=== PATIENT | female | born 1960 | race Caucasian/White ===

== ENCOUNTER → 2016-07-07 | Outpatient (CLI) | payer BC ==
--- NOTE | 2016-07-07 10:05 | MM ---
Reason for exam: clinical finding. Last mammogram was performed 1 year and 1 month ago. History: Patient is postmenopausal and is nulliparous. Family history of breast cancer in maternal grandmother and breast cancer in paternal aunt. Benign right mammotome panel of the right breast, December 31, 2008. Taking hormonal contraceptives for 2 years beginning at age 46. Indicated problem(s): lump or thickening in the left breast. Physical Findings: Nurse did not find any significant physical abnormalities on exam. MG 3D Diag Mammo W/Cad KG Bilateral CC and MLO view(s) were taken. Prior study comparison: May 27, 2015, bilateral MG 3d screening mammo w/cad. September 12, 2013, bilateral digital screening mammo w/CAD. August 04, 2012, bilateral digital screening mammo w/CAD. The breast tissue is heterogeneously dense. This may lower the sensitivity of mammography. Previous mammotome biopsy in the right breast. No significant new findings when compared with previous films. These results were verbally communicated with the patient and result sheet given to the patient on 07/07/16. ASSESSMENT: Incomplete: need additional imaging evaluation, BI-RAD 0 RECOMMENDATION: Ultrasound of the left breast. (6-12 o'clock in the region of physician palpated abnormality)
--- NOTE | 2016-07-07 10:07 | USB ---
Reason for exam: additional evaluation requested from abnormal screening. History: Patient is postmenopausal and is nulliparous. Family history of breast cancer in maternal grandmother and breast cancer in paternal aunt. Benign right mammotome panel of the right breast, December 31, 2008. Taking hormonal contraceptives for 2 years beginning at age 46. US Breast Limited LT Left breast ultrasound demonstrates no cystic or solid lesion seen. These results were verbally communicated with the patient and result sheet given to the patient on 07/07/16. ASSESSMENT: Negative, BI-RAD 1 RECOMMENDATION: Routine screening mammogram of both breasts in 1 year. Manage patient on a clinical basis with regard to any suspicious palpable abnormalities.
== END | disposition home or self-care (01) ==
LOC: RADMAMWWP 08:16
PROVIDERS: ATTEND Family Medicine
DX: N63 Unspecified lump in breast (principal); R92.8 Other abnormal and inconclusive findings on diagnostic imaging of breast
CPT/HCPCS: 76642; G0204; G0279

== ENCOUNTER → 2017-11-21 | Outpatient (CLI) | payer BC ==
[2017-11-22 03:19] LABS: Alternaria alternata IgE <0.10 kU/L; Birch IgE <0.10 kU/L; Cat Epith & Dander IgE <0.10 kU/L; Cockroach IgE <0.10 kU/L; Dermato. farinae IgE <0.10 kU/L; Dog Dander IgE <0.10 kU/L; Elm IgE <0.10 kU/L; Immunoglobulin E 7.93 IU/mL (0.00-114.00); Maple (Box Elder) IgE <0.10 kU/L; Oak IgE <0.10 kU/L; Ragweed,Common IgE 0.19 kU/L; Red Top (Bentgrass) IgE <0.10 kU/L
== END | disposition home or self-care (01) ==
LOC: LABWHC1 16:37
PROVIDERS: ATTEND Internal Medicine Critical Care Medicine
DX: J45.909 Unspecified asthma, uncomplicated (principal); T78.40XA Allergy, unspecified, initial encounter
CPT/HCPCS: 36415; 82785; 86003

== ENCOUNTER → 2017-11-21 | Outpatient (CLI) | payer BC ==
--- NOTE | 2017-11-21 19:53 | CONS ---
CONSULTATION DATE OF SERVICE: 11/21/2017. HISTORY OF PRESENT ILLNESS: A 57-year-old female patient presenting with loud snoring, daytime somnolence, sleepiness and fatigue. The patient is concerned about obstructive sleep apnea. She has gained only 10 pounds over the past 5 years. She had an initial sleep evaluation through [facility] and she was told not to be a good candidate for CPAP therapy and she was offered an oral appliance. Nevertheless, the patient did not consider that option and over the past 5 to 6 days her condition has gotten worse to the point where the was complaining of loud snoring, and has also witnessed her quitting breathing. She goes to bed around 11 p.m., wakes up at 5 a.m. in the morning. She is averaging somewhere between 5 to 7 hours of sleep per night. No nocturia. No history of any motor vehicle accident because of feeling drowsy or sleepy. The patient's Leoti Score is at 6. PAST MEDICAL HISTORY: 1. Multiple environmental allergies and the patient is describing symptoms of chronic allergic rhinitis. 2. Hypertension. 3. Chronic back pain. 4. History of steroid intake related to allergies and back pain which added to her body weight. PAST SURGICAL HISTORY: Appendectomy and breast biopsy. DRUG ALLERGIES: CECLOR, CIPRO, BACTRIM, AUGMENTIN, KEFLEX, CLARITHROMYCIN. MEDICATIONS: 1. Lisinopril hydrochlorothiazide 10/25 one tablet a day. 2. Vitamin D3, 2000 units a day. SOCIAL HISTORY: The patient is a nonsmoker. No history of alcohol. No history of IV drugs. FAMILY HISTORY: Sister and brother with obstructive sleep apnea. REVIEW OF SYSTEMS: A 12-point review of system was done. She has chronic rhinitis with congestion or drainage for which she has used Flonase in the past. She has also multiple environmental allergies. No angioedema. No anaphylaxis. No nocturia. No grinding. No anxiety or panic attacks. No palpitations or heartburn. No sleepwalking or sleep talking. No other complaints otherwise. PHYSICAL EXAMINATION: Vital signs BP 98/69, pulse 80, respirations 16, temperature 97.4, saturation 99% on room air. Weight is 209, height is 5 feet 7 inches. BMI 32.7. GENERAL APPEARANCE: Appears calm and comfortable. HEAD: Atraumatic, normocephalic. NECK: Supple. There is no JVD. No goiter, no neck mass. LUNGS: Clear to auscultation. HEART: Sounds regular rhythm. Normal S1, S2. No S3. No murmurs. ABDOMEN: Soft, nontender. No organomegaly. EXTREMITIES: No edema. No cyanosis or clubbing. NEUROLOGIC: Alert and oriented x3. No focal neurological deficits. PSYCHIATRIC: Negative for anxiety or depression. IMPRESSION: 1. Obstructive sleep apnea clinically suspected, under investigation. 2. Chronic environmental allergies and allergic rhinitis. 3. Loud snoring. 4. There is a mild degree of fatigue and sleepiness with Leoti score of 6. 5. Hypertension. PLAN: 1. Restart Flonase regarding chronic allergies. 2. 2 check baseline IgE level and inhalation or rest antibodies for allergy evaluation. 3. Proceed with a screening polysomnogram looking for any significant sleep breathing disorder. 4. Encourage weight loss. 5. Will continue to follow. GILAL / ELBERTN: [id number] /
== END | disposition home or self-care (01) ==
LOC: SLEEP 14:49
PROVIDERS: ATTEND Internal Medicine Critical Care Medicine
DX: R06.83 Snoring (principal); R40.0 Somnolence; J30.9 Allergic rhinitis, unspecified; R53.83 Other fatigue; I10 Essential (primary) hypertension; G89.29 Other chronic pain; M54.9 Dorsalgia, unspecified; Z98.890 Other specified postprocedural states; Z88.2 Allergy status to sulfonamides; Z79.52 Long term (current) use of systemic steroids; Z88.1 Allergy status to other antibiotic agents; Z79.899 Other long term (current) drug therapy
CPT/HCPCS: 99211

== ENCOUNTER → 2018-03-13 | Outpatient (CLI) | payer BC ==
--- NOTE | 2018-03-13 17:54 | PN ---
PROGRESS NOTE This is a compliancy check. This is a 57-year-old female patient who was diagnosed having obstructive sleep apnea, severe with an AHI of 30, worse during REM and worse in supine body position. The patient underwent an an APAP treatment and currently is on an APAP with a minimum pressure of 5, maximum pressure of 20, and today she is coming in for a compliancy check. She looks great. She is very happy with her ongoing treatment. She is using an AirFit F10 full-face medium-sized mask. She is benefitting from the treatment. She is waking up much more alert and refreshed during the day. Her quality of sleep has improved considerably. On compliancy data, the patient has been utilizing her CPAP more than 4 hours / days and her average use is around 6.4 hours. Her P90 pressure is at 18. Leak factor is L/minute. AHI while on treatment is down to 2.1. She has no complaints otherwise. REVIEW OF SYSTEMS: Twelve-point review of systems was done. She has gained a few pounds since her last evaluation. Otherwise she is feeling better and her Melbourne score is currently down to 4. At times she is having aerophagia with some flatus and abdominal distention due to her CPAP treatment; however, this is not very concerning. PHYSICAL EXAMINATION: BP is 110/70, pulse 82, respirations 16, temperature 98.2, weight , saturation 99% on room air. GENERAL APPEARANCE: Calm, comfortable. Head is atraumatic, normocephalic. NECK: Supple. There is no JVD. No goiter or neck masses. Mallampati class IV. LUNGS: Clear to auscultation. HEART: Heart sounds are regular rate and rhythm. Normal S1, S2. No S3, S4. No murmurs. ABDOMEN: Soft, nontender. No organomegaly. EXTREMITIES: No edema. No cyanosis or clubbing. IMPRESSION: 1. Severe obstructive sleep apnea with an apnea/hypopnea index of 30, worse in a supine body position and worse in REM. The patient is undergoing a successful APAP treatment. 2. Hypersomnia, improved. Melbourne score is down to 4. 3. Chronic fatigue, improved. 4. Obesity with a body mass index of 32 and interval 5 to 6 pounds' weight gain. PLAN: 1. Proceed with APAP therapy at the same level of pressures. 2. Continue the AirFit F10 mask. The patient was offered another mask as an alternative, which would be the [employer] MobilityWear small-size full-face mask. She is happy with the treatment. She continues to be compliant. Encourage weight loss and see me back in a year's time in followup, earlier if needed. MMJONATHANL / ELBERTN: [id number] /
== END | disposition home or self-care (01) ==
LOC: SLEEP 16:30
PROVIDERS: ATTEND Internal Medicine Critical Care Medicine
DX: G47.33 Obstructive sleep apnea (adult) (pediatric) (principal); R53.1 Weakness; E66.9 Obesity, unspecified; Z68.32 Body mass index [BMI] 32.0-32.9, adult; Z99.89 Dependence on other enabling machines and devices

== ENCOUNTER → 2018-09-26 | Outpatient (CLI) | payer BC ==
--- NOTE | 2018-09-28 08:25 | MM ---
Reason for exam: screening (asymptomatic). Last mammogram was performed 2 years and 3 months ago. History: Patient is postmenopausal and is nulliparous. Family history of breast cancer in maternal grandmother and breast cancer in paternal aunt. Benign right mammotome panel of the right breast, December 31, 2008. Taking hormonal contraceptives for 2 years beginning at age 46. Physical Findings: A clinical breast exam by your physician is recommended on an annual basis and results should be correlated with mammographic findings. MG 3D Screening Mammo W/Cad Bilateral CC and MLO view(s) were taken. Prior study comparison: July 07, 2016, bilateral MG 3d diag mammo w/cad KG. May 27, 2015, bilateral MG 3d screening mammo w/cad. There are scattered fibroglandular densities. Previous mammotome biopsy in the right breast. No significant changes when compared with prior studies. ASSESSMENT: Negative, BI-RAD 1 RECOMMENDATION: Routine screening mammogram of both breasts in 1 year.
== END | disposition home or self-care (01) ==
LOC: RADMAMWWP 16:10
PROVIDERS: ATTEND Family Medicine
DX: Z12.31 Encounter for screening mammogram for malignant neoplasm of breast (principal)
CPT/HCPCS: 77063; 77067

== ENCOUNTER → 2018-10-26 | Outpatient (CLI) | payer BC ==
--- NOTE | 2018-10-27 13:04 | US ---
EXAMINATION TYPE: US thyroid st tissue head/neck DATE OF EXAM: 10/26/2018 COMPARISON: NONE CLINICAL HISTORY: E04.2 Nontoxic multinodular goiter. Goiter GLAND SIZE: Right Lobe: 5.9 x 2.2 x 3.0 cm Overall Parenchyma: heterogenous Left Lobe: 5.3 x 2.5 x 2.1 cm Overall Parenchyma: heterogeneous Isthmus Thickness: 0.4 cm NODULES RIGHT: # of nodules measured on right: 1 1. 0.5 X 0.5 x 0.6 cm hypoechoic solid nodule at the lower pole with well-defined margins; This no dule is wider than tall and shows intranodular vascularity. Prior size: No prior LEFT: # of nodules measured on left: 1 1. 1.2 X 1.0 x 1.4 cm hypoechoic solid nodule at the lower pole with well-defined margins; This nod ule is wider than tall and shows intranodular vascularity. Prior size: No prior ISTHMUS: # of nodules measured in the isthmus: 1 1. 0.8 X 0.6 x 0.8 cm hypoechoic mixed nodule with well-defined margins; This nodule is wider than tall and shows intranodular vascularity. Prior size: No prior Bilateral neck scanned, no evidence of lymphadenopathy. Innumerable nodules bilaterally, largest on r ight lobe measured and all nodules on right side appeared sub-centimeter. Single nodule on left measu red >1cm while all other nodules appeared sub-centimeter. IMPRESSION: 1. A 1.2 cm nodule within the inferior left lobe thyroid. 2. Multiple bilateral subcentimeter nodules present within the thyroid lobes.
== END | disposition home or self-care (01) ==
LOC: RADUSWWP 16:08
PROVIDERS: ATTEND Internal Medicine Endocrinology, Diabetes & Metabolism
DX: E04.2 Nontoxic multinodular goiter (principal)
CPT/HCPCS: 76536

== ENCOUNTER → 2019-06-25 | Outpatient (CLI) | payer BC ==
--- NOTE | 2019-06-25 18:02 | PN ---
PROGRESS NOTE Mya is 58, coming in for a routine annual check. She is a morbidly obese female patient who has gained weight, and she is up by another 20 pounds since her last evaluation. I had done an APAP mode to treat her severe obstructive sleep apnea. Her baseline AHI was 30. Based on an earlier compliancy check, the patient was averaging around 18 cm of water on her CPAP unit with excellent clinical response without any major leaks. On today's evaluation, her average pressure has gone up to 19.4. She is using APAP mode, minimum pressure of 5, maximum pressure of 20. She is extremely compliant. She is averaging around 8.1 hours of CPAP use per night and her CPAP use for more than 4 hours is 100%. Her AHI is down to 2.8. Her only complaint is aerophagia where she is belching and passing gas and she starts feeling bloated. She is using the AirFit F10 full-face mask for now. REVIEW OF SYSTEMS: No major somnolence or sleepiness. She continues to benefit from treatment with the side effect of aerophagia. We discussed this on previous evaluation and this continues to be concerning. I noted her APAP machine. I noted that the pressure that is being pump from machine is quite high at around 19.4 cm of water. She had to tighten up the mask, which is leaving mask gutiérrez on her face. No heartburn. No chest pain or shortness of breath overnight. PHYSICAL EXAMINATION: VITAL SIGNS: BP is 115/62, pulse 76, respiratory rate 16, temperature 98.1, saturation 95% on room air. Height is 5 feet 7 inches, weight 224, BMI 35. GENERAL APPEARANCE: Calm, comfortable. HEAD: Atraumatic, normocephalic. NECK: Supple. No JVD. No goiter or neck masses. Mallampati class IV. LUNGS: Clear to auscultation. HEART: Heart sounds are regular rate and rhythm. Normal S1, S2. No S3, S4. No murmurs. ABDOMEN: Soft, nontender. No organomegaly. EXTREMITIES: No edema. No cyanosis or clubbing. NEUROLOGIC: Awake and alert. No focal neurological deficits. PSYCHIATRIC: Negative for anxiety or depression. SKIN: Negative for any wounds or ulceration. IMPRESSION: 1. Severe obstructive sleep apnea, apnea/hypopnea index of 30, currently on APAP with a minimum pressure of 5, maximum pressure of 20, with successful treatment. 2. Aerophagia, probably related to the high pressure delivered by the APAP machine. 3. Hypersomnia, improved. 4. Chronic fatigue, improved. 5. Obesity with interval weight gain. BMI is up to 35 with a body weight of 224. PLAN: Despite her successful response, I am lowering the maximum APAP pressure that is being delivered to the machine. I will put her on a max of 16 with a minimum of 5 and I am hoping this will allow the patient lower pressure delivered by the CPAP machine and I am hoping that the aerophagia and the gastric distention and bloating will improves. If not, she is willing to go back on her routine pressures, which will be 5 and 20, on her APAP. Encourage weight loss and see me back in a year's time in followup, earlier if needed, especially if the drop in the pressure is suboptimal. KRISTIE / ELBERTN: [id number] /
== END | disposition home or self-care (01) ==
LOC: SLEEP 16:00
PROVIDERS: ATTEND Internal Medicine Critical Care Medicine
DX: G47.33 Obstructive sleep apnea (adult) (pediatric) (principal); E66.01 Morbid (severe) obesity due to excess calories; Z68.35 Body mass index [BMI] 35.0-35.9, adult; F45.8 Other somatoform disorders; Z99.89 Dependence on other enabling machines and devices

== ENCOUNTER → 2019-12-02 | Outpatient (CLI) | payer BC ==
--- NOTE | 2019-12-02 15:35 | US ---
EXAMINATION TYPE: US thyroid st tissue head/neck DATE OF EXAM: 12/02/2019 COMPARISON: NONE CLINICAL HISTORY: 59-year-old female E04.2 MULTINODULAR GOITER. TECHNIQUE: Multiple sonographic images of the thyroid gland are obtained. FINDINGS: VETERINARY PHARMACOLOGIST NOTES: Innumerable subcentimeter nodules visualized bilaterally. The largest are measured . GLAND SIZE: Right Lobe: 5.1 X 2.0 X 2.0 cm Overall Parenchyma: heterogenous Left Lobe: 5.1 x 2.5 x 2.1 cm Overall Parenchyma: heterogeneous Isthmus Thickness: 0.4 cm NODULES RIGHT: # of nodules measured on right: 2 1. 0.8 X 0.4 x 0.8 cm hypoechoic solid nodule at the lower pole with well-defined margins; . This nodule is wider than tall and shows no intranodular vascularity. Prior size: 0.5 x 0.5 x 0.6 cm 2. 0.7 X 0.3 x 0.5 cm hypoechoic solid nodule at the upper pole with well-defined margins; . This n odule is wider than tall and shows intranodular vascularity. Prior size: No previous LEFT: # of nodules measured on left: 1 1. 1.4X 1.3 x 1.4 cm hypoechoic solid nodule at the lower pole with well-defined margins; . This n odule is wider than tall and shows intranodular vascularity. Prior size: 1.2 x 1.0 x 1.4 cm ISTHMUS: # of nodules measured in the isthmus: 1 1. 0.8 X 0.6 x 0.7 cm hypoechoic cystic nodule at the mid pole with well-defined margins; . This n odule is wider than tall and shows no intranodular vascularity. Prior size: 0.8 x 0.6 x 0.8 cm Bilateral neck scanned, no evidence of lymphadenopathy. IMPRESSION: 1. Multinodular goiter. 2. Dominant nodule right lower pole minimally larger at 8 x 8 mm versus 6 x 5 mm, previously. The 7 m m nodule at the right upper pole may be new. 3. The nodule in the left lobe and within the isthmus are relatively similar at 1.4 x 1.4 cm (versus 1.4 x 1.2 cm, previously) and 8 x 7 mm (versus 8 x 8 mm, previously), respectively.
== END | disposition home or self-care (01) ==
LOC: RADUSWWP 14:52
PROVIDERS: ATTEND Internal Medicine Endocrinology, Diabetes & Metabolism
DX: E04.2 Nontoxic multinodular goiter (principal)
CPT/HCPCS: 76536

== ENCOUNTER → 2019-12-03 | Outpatient (CLI) | payer BC ==
[2019-12-03 18:35] LABS: T4, Free (Free Thyroxine) 1.1 ng/dL (0.80-1.80)
== END | disposition home or self-care (01) ==
LOC: LABWHC1 07:31
PROVIDERS: ATTEND Internal Medicine Endocrinology, Diabetes & Metabolism
DX: E04.2 Nontoxic multinodular goiter (principal)
CPT/HCPCS: 36415; 84439; 84443

== ENCOUNTER → 2020-04-17 | Outpatient (CLI) | payer BC ==
--- NOTE | 2020-04-20 10:28 | MM ---
Reason for exam: screening (asymptomatic). Last mammogram was performed 1 year and 7 months ago. History: Patient is postmenopausal and is nulliparous. Family history of breast cancer in maternal grandmother and breast cancer in paternal aunt. Benign right mammotome panel of the right breast, December 31, 2008. Took hormonal contraceptives for 2 years beginning at age 46. Physical Findings: A clinical breast exam by your physician is recommended on an annual basis and results should be correlated with mammographic findings. MG 3D Screening Mammo W/Cad Bilateral CC and MLO view(s) were taken. Prior study comparison: September 26, 2018, bilateral MG 3d screening mammo w/cad. July 07, 2016, bilateral MG 3d diag mammo w/cad KG. The breast tissue is heterogeneously dense. This may lower the sensitivity of mammography. Focal asymmetry inner upper right breast middle third position. ASSESSMENT: Incomplete: need additional imaging evaluation, BI-RAD 0 RECOMMENDATION: Special view mammogram of the right breast. If lesion persists on supplemental views, image directed ultrasound is recommended. [facility] will attempt to contact patient to return for supplemental views and ultrasound if indicated.
== END | disposition home or self-care (01) ==
LOC: RADMAMWWP 16:30
PROVIDERS: ATTEND Family Medicine
DX: Z12.31 Encounter for screening mammogram for malignant neoplasm of breast (principal)
CPT/HCPCS: 77063; 77067

== ENCOUNTER → 2020-04-22 | Outpatient (CLI) | payer BC ==
--- NOTE | 2020-04-22 08:52 | MM ---
Reason for exam: additional evaluation requested from abnormal screening. Last mammogram was performed less than 1 month ago. History: Patient is postmenopausal and is nulliparous. Family history of breast cancer in maternal grandmother and breast cancer in paternal aunt. Benign right mammotome panel of the right breast, December 31, 2008. Took hormonal contraceptives for 2 years beginning at age 46. Physical Findings: Nurse Summary: 1cm nodule in the right breast at 5 o'clock and a 1.5cm nodule in the left breast at 9 o'clock (nurse mj). MG 3D Work Up W/Cad RT Spot compression CC, spot compression MLO, and ML view(s) were taken of the right breast. Prior study comparison: April 17, 2020, bilateral MG 3d screening mammo w/cad. September 26, 2018, bilateral MG 3d screening mammo w/cad. The breast tissue is heterogeneously dense. This may lower the sensitivity of mammography. There is no discrete abnormality including area of concern. These results were verbally communicated with the patient and result sheet given to the patient on 04/22/20. ASSESSMENT: Incomplete: need additional imaging evaluation, BI-RAD 0 RECOMMENDATION: Ultrasound of both breasts. Manage patient on a clinical basis.
--- NOTE | 2020-04-22 08:53 | USB ---
Reason for exam: additional evaluation requested from abnormal screening. History: Patient is postmenopausal and is nulliparous. Family history of breast cancer in maternal grandmother and breast cancer in paternal aunt. Benign right mammotome panel of the right breast, December 31, 2008. Took hormonal contraceptives for 2 years beginning at age 46. US Breast Workup Limited KG Right limited breast ultrasound including focal area of concern, retroareolar and axilla demonstrates no cystic or solid lesion seen. Left limited breast ultrasound including focal area of concern, retroareolar and axilla demonstrates no cystic or solid lesion seen. These results were verbally communicated with the patient and result sheet given to the patient on 04/22/20. ASSESSMENT: Negative, BI-RAD 1 RECOMMENDATION: Return to routine screening mammogram schedule for both breasts. Manage patient on a clinical basis.
== END | disposition home or self-care (01) ==
LOC: RADMAMWWP 07:37
PROVIDERS: ATTEND Family Medicine
DX: N63.10 Unspecified lump in the right breast, unspecified quadrant (principal); N63.20 Unspecified lump in the left breast, unspecified quadrant; R92.8 Other abnormal and inconclusive findings on diagnostic imaging of breast
CPT/HCPCS: 77061; 77065

== ENCOUNTER → 2020-09-29 | Outpatient (CLI) | payer BC ==
--- NOTE | 2020-09-29 18:22 | PN ---
PROGRESS NOTE Mya is 60 with known history of obstructive sleep apnea with an AHI of 30, currently coming in for annual check. During her last evaluation, the patient was feeling bloated and she was swallowing a lot of air, and I limited the APAP pressure to a pressure minimum of 5 and a maximum of 16. On today's evaluation, she is feeling better. She has lost around 7 pounds since her last evaluation. Based on the compliance data that was collected over the past 30 days, the patient has utilized her machine every night without any interruption, averaging about 8 hours, and the average pressure delivered by the machine is around 15.7 cm of water with a leak of 11 L/minute, and her AHI is down to 3.6. She is using the AirFit F10 medium-sized full- face mask. Her blood pressure is under good control. No hypersomnia or sleepiness during the day. No angina or palpitation. Westfield score is 5. PHYSICAL EXAMINATION: BP is 113/76, pulse 78, respirations 16, temperature 97.9, saturation 99% on room air. Westfield score is 5. BMI is 33.9. Height is 5 feet 7 inches, weight 217. GENERAL APPEARANCE: Calm, comfortable. HEAD: Atraumatic, normocephalic. NECK: Supple. No JVD. No goiter or neck masses. LUNGS: Diminished; otherwise clear. HEART: Heart sounds are regular rate and rhythm. Normal S1, S2. No S3, S4. No murmurs. ABDOMEN: Soft, nontender. No organomegaly. EXTREMITIES: No edema. No cyanosis or clubbing. IMPRESSION: 1. Obstructive sleep apnea, severe, with an AHI of 30, currently on APAP, pressure minimum of 5, maximum of 16, with excellent clinical response and compliancy. 2. Obesity with interval weight loss. Current BMI is down to 33.9. 3. Aerophagia, recovered. 4. Chronic fatigue, improved. 5. Chronic sleepiness, improved. Westfield score is down to 5. PLAN: 1. Continue APAP with a pressure minimum of 5, maximum of 16. 2. Offer the patient an AirFit F20 full-face mask, medium size. 3. Continue using CPAP every night. The patient will be encouraged to lose more weight and see me back in followup in a few years' time. Supplies will be refilled. The patient has been switched to an AirFit F20 full-face mask. MMODL / IJN: [id number] /
== END ==
LOC: SLEEP 15:24
PROVIDERS: ATTEND Internal Medicine Critical Care Medicine
DX: G47.33 Obstructive sleep apnea (adult) (pediatric) (principal); E66.9 Obesity, unspecified; Z68.33 Body mass index [BMI] 33.0-33.9, adult; F45.8 Other somatoform disorders; R53.82 Chronic fatigue, unspecified

== ENCOUNTER → 2020-12-04 | Outpatient (CLI) | payer BC, OTHER ==
[2020-12-04 15:22] LABS: T4, Free (Free Thyroxine) 1.03 ng/dL (0.78-2.19)
--- NOTE | 2020-12-04 15:24 | US ---
EXAMINATION TYPE: US thyroid st tissue head/neck DATE OF EXAM: 12/04/2020 COMPARISON: US 2019 CLINICAL HISTORY: E04.2 Nontoxic multinodular goiter GLAND SIZE: Right Lobe: 5.3 x 2.2 x 2.6 Overall Parenchyma: heterogenous Left Lobe: 5.3 x 2.3 x 2.2 Overall Parenchyma: heterogeneous Isthmus Thickness: 0.4m NODULES RIGHT: # of nodules measured on right: 1 1.0.8 graph X 0.5 x 0.6 cm, mid lateralmixed cystic and solid, hypoechoic nodule, which is wider lauren n tall, with smooth margins, without echogenic foci. This is slightly larger than prior exam. Prior size: 0.7 x 0.3 x 0.5cm LEFT: # of nodules measured on left: 1 1. 1.8 x 1.5 x 1.7 cm, lower mid, mixed cystic and solid, hypoechoic nodule, which is wider than tall , with smooth margins, without echogenic foci. This is larger than prior exam. This is a BI-RADS 4 no dule. This would be amenable to ultrasound-guided percutaneous aspiration. Prior size: 1.4 x 1.3 x 1.4cm ISTHMUS: # of nodules measured in the isthmus: 1 1. 0.9 x 0.7 x 0.8 cm mixed cystic and solid, hypoechoic nodule, which is wider than tall, with noa h margins, without echogenic foci. This is slightly larger than prior exam. Prior size: 0.8 x 0.6 x 0.7cm Bilateral neck scanned, no evidence of lymphadenopathy. Enlarged heterogeneous gland with multiple nodules, largest described above. IMPRESSION: Multiple thyroid nodules are suggestive of a TI-RADS 4 nodules. One is amenable to ultrasound-guided percutaneous aspiration per criteria in the left lobe now measuring 1.8 x 1.5 x 1.7 cm, slightly larg er than prior exam. Enlarged thyroid gland with multiple nodules suggestive of multinodular goiter. Interval slight enlargement of the other thyroid nodules. Continued sonographic follow-up is also rec ommended. 2017 ACR TI-RADS LEVEL: 4 *Highest TI-RADS level nodule reported
== END | disposition home or self-care (01) ==
LOC: RADUSWWP 13:35
PROVIDERS: ATTEND Internal Medicine Endocrinology, Diabetes & Metabolism
DX: E04.2 Nontoxic multinodular goiter (principal)
CPT/HCPCS: 76536; 84439; 84443

== ENCOUNTER → 2021-06-01 | Outpatient (CLI) | payer BC, OTHER ==
--- NOTE | 2021-06-03 14:46 | MM ---
Reason for exam: screening (asymptomatic). Last mammogram was performed 1 year and 1 month ago. History: Patient is postmenopausal and is nulliparous. Family history of breast cancer in maternal grandmother and breast cancer in paternal aunt. Benign right mammotome panel of the right breast, December 31, 2008. Took hormonal contraceptives for 2 years beginning at age 46. Physical Findings: A clinical breast exam by your physician is recommended on an annual basis and results should be correlated with mammographic findings. MG 3D Screening Mammo W/Cad Bilateral CC and MLO view(s) were taken. Prior study comparison: April 17, 2020, bilateral MG 3d screening mammo w/cad. September 26, 2018, bilateral MG 3d screening mammo w/cad. July 07, 2016, bilateral MG 3d diag mammo w/cad KG. The breast tissue is heterogeneously dense. This may lower the sensitivity of mammography. Previous mammotome biopsy in the right breast. Focal asymmetry right CC, stable. No significant changes when compared with prior studies. ASSESSMENT: Benign, BI-RAD 2 RECOMMENDATION: Routine screening mammogram of both breasts in 1 year.
== END | disposition home or self-care (01) ==
LOC: RADMAMWWP 14:02
PROVIDERS: ATTEND Family Medicine
DX: Z12.31 Encounter for screening mammogram for malignant neoplasm of breast (principal); Z80.3 Family history of malignant neoplasm of breast; Z78.0 Asymptomatic menopausal state
CPT/HCPCS: 77063; 77067

== ENCOUNTER → 2021-06-28 | Outpatient (CLI) | payer BC, OTHER ==
--- NOTE | 2021-06-28 19:33 | P.STRESS ---
- Stress Test Note Stress Test Results/Findings: Exam Performed: EH stress test Exam Date: 06/28/21 Reason for Exam: CHEST PAIN Height: 5 ft 7 in Weight: 96.4 kg Protocol: DREA Stage: 2 Duration of Exercise: 6:00 Resting Heart Rate: 85 Resting Blood Pressure: 124/77 Maximum Achieved Heart Rate: 149 Maximum Achieved Blood Pressure: 200/60 85% PMHR: 135 100% PMHR: 159 METS: 7.1 Technologist Comment: Stress Test Results/Findings: Exercise stress test Baseline heart rate 85 beats a minute, Baseline blood pressure 124/77 mmHg Patient exercised on a Drea protocol for 6 minutes Hypertensive response to exercise Blood pressure up to 200/60 mmHg Symptomatic No ECG evidence for ischemia A very brief run of nonsustained atrial tachycardia with aberrant conduction
== END | disposition home or self-care (01) ==
LOC: RADNMMAIN 08:51
PROVIDERS: ATTEND Family Medicine
DX: R07.9 Chest pain, unspecified (principal)
CPT/HCPCS: 93017

== ENCOUNTER → 2021-08-19 | Outpatient (CLI) | payer BC, OTHER ==
--- NOTE | 2021-08-20 06:36 | US ---
EXAMINATION TYPE: US thyroid st tissue head/neck DATE OF EXAM: 08/19/2021 COMPARISON: US December 04, 2020 CLINICAL HISTORY: E04.2 MULTINODULAR GOITER. Followup thyroid nodules GLAND SIZE: Right Lobe: 5.2 x 2.5 x 1.9 cm Overall Parenchyma: heterogenous Left Lobe: 5.5 x 2.4 x 2.4 cm Overall Parenchyma: heterogeneous Isthmus Thickness: 0.5 cm NODULES RIGHT: # of nodules measured on right: 3 1. 0.9 X 0.5 x 0.6 cm, upper pole, mixed cystic and solid, hypoechoic nodule, which is taller than wide, with smooth margins, with echogenic foci. Prior size: not seen 2. 0.7 X 0.7 x 0.5 cm, mid pole, mixed cystic and solid, hypoechoic nodule, which is wider than courtney l, with smooth margins, with echogenic foci. Prior size: 0.8 x 0.6 x 0.5 cm 3. 0.7 X 0.8 x 0.7 cm, lower pole, mixed, hypoechoic nodule, which is wider than tall, with ill-def ined margins, without echogenic foci. Prior size: no prior LEFT: # of nodules measured on left: 2 1. 2.3 X 2.0 x 1.5 cm, lower pole, mixed cystic and solid, hypoechoic nodule, which is wider than tall, with ill-defined margins, with echogenic foci. Prior size: 1.8 x 1.7 x 1.5 cm 2. 1.0 X 0.8 x 0.5 cm, lower medial, mixed cystic, hypoechoic nodule, which is wider than tall, wi th smooth margins, with echogenic foci. Prior size: no previous ISTHMUS: # of nodules measured in the isthmus: 1 1. 0.9 X 0.7 x 0.7 cm mixed cystic and solid, hypoechoic nodule, which is wide as is tall, with smo oth margins, with echogenic foci. Prior size: 0.9 x 0.8 x 0.7 cm Bilateral neck: no evidence of lymphadenopathy. Redemonstration of heterogeneous normal-sized thyroid with bilateral scattered small nodules. Dominan t nodule posteriorly left thyroid lobe is not significantly changed when accounting for technical dif ferences along with technologist including the superior cystic nodule as part of this nodule on curre nt study versus excluding on prior exams in 2019 and 2020. IMPRESSION: As above. No new suspicious greater than 1.0 cm solid nodules.
== END | disposition home or self-care (01) ==
LOC: RADUSWWP 16:05
PROVIDERS: ATTEND Internal Medicine Endocrinology, Diabetes & Metabolism
DX: E04.2 Nontoxic multinodular goiter (principal)
CPT/HCPCS: 76536

== ENCOUNTER → 2021-11-02 | Outpatient (CLI) | payer BC, OTHER ==
--- NOTE | 2021-11-02 15:37 | P.PN ---
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 She is doing well. No specific complaints. She has gained a few pounds since her last evaluation. Initially his functional. She continues to use the machine on a APAP mode at a pressure minimum of 5 and a maximum of 16. The patient is using and [id number] medium size full facemask and she has tried other medicine the past without much success and she opted on staying on the same mask interface for now. No new onset comorbidities. No cardiac events and no CHF. No stroke. No myocardial infarctions. I check her compliance data from the machine and the patient is extremely compliant to the patient has been averaging around 7.5 hours of CPAP use per night. Her uses of the machine for more than 4 hours at 100%. AHI is down to 3.7. The patient is at the humidity level of 4 and an EPR of 3. No hypersomnia and sleepiness during the day patient maintains a good regular sleep schedule. No excessive intake of caffeine or caffeinated beverages. No head trauma. No substance abuse. No other complaints otherwise for now. Objective - Exam BP is 126/78, pulse is 88, respirations 12, temperature 98.1, weight is 225, height is 5 7 and the patient's body mass index is 35.2. [place] score is currently down to 4. The patient appeared well nourished and normally developed. Vital signs as documented. Head exam is unremarkable. No scleral icterus or corneal arcus noted. Neck is without jugular venous distension, thyromegaly, or carotid bruits. Carotid upstrokes are brisk bilaterally. Lungs are clear to auscultation and percussion. Cardiac exam reveals the PMI to be normally sized and situated. Rhythm is regular. First and second heart sounds normal. No murmurs, rubs or gallops. Abdominal exam reveals normal bowel sounds, no masses, no organomegaly and no aortic enlargement. Extremities are nonedematous and both femoral and pedal pulses are normal.Examination of the skin revealed no evidence of significant rashes, suspicious appearing nevi or other concerning lesions.Neurologically, the patient is awake and alert and the patient does not have any focal neurological deficit. Cranial nerves are essentially intact. Assessment and Plan Plan: Severe NAIMA with an AHI of 30, continues to receive successful treatment with APAP pressure minimum of 5 and a maximum of 16 obesity, current weight is 225 Chronic hypersomnia improved Chronic fatigue, improved Hypertension Plan Performed a compliance check and the patient pO2 was successful. No need for any further adjustments. Keep the APAP mode. Refill her supplies. Encourage weight loss. Sleep hygiene measures are good. We'll see her back in a year's time in follow-up. Keep the humidity level at 4. Refill her supplies through [employer].
== END ==
LOC: SLEEP 15:22
PROVIDERS: ATTEND Internal Medicine Critical Care Medicine
DX: G47.33 Obstructive sleep apnea (adult) (pediatric) (principal); E66.9 Obesity, unspecified; I10 Essential (primary) hypertension; Z68.35 Body mass index [BMI] 35.0-35.9, adult; Z88.1 Allergy status to other antibiotic agents

== ENCOUNTER 2021-11-23 09:27 | Day surgery (SDC) | payer BC, OTHER ==
[~2021-11-23 09:27] MED LIST: LACTATED RINGERS 1,000 ML IV SCH; LIDOCAINE 1% (10MG/ML) FOR IV START INTRADERMA PRN
[2021-11-23 10:05] VITALS: TEMP 97.8
[2021-11-23] MEDS ORDERED: PROPOFOL 10 MG/ML 20 ML VIAL IV ONE (11:27)
--- NOTE | 2021-11-23 11:43 | P.PCN ---
Date of Procedure: 11/23/21 Procedure(s) Performed: BRIEF HISTORY: Patient is a 61-year-old pleasant White female scheduled for an elective colonoscopy as a part of screening for colorectal neoplasia. PROCEDURE PERFORMED: Colonoscopy. PREOPERATIVE DIAGNOSIS: Screening for colon cancer. IV sedation per Anesthesia. PROCEDURE: After informed consent was obtained, the patient, was brought into the endoscopy unit. IV sedation was administered by Anesthesia under continuous monitoring. Digital rectal examination was normal. Initially the Olympus CF-160 flexible video colonoscope was then inserted in the rectum, gradually advanced into the cecum without any difficulty. Careful examination was performed as the scope was gradually being withdrawn. Ileocecal valve and the appendiceal orifice were visualized and appeared normal. Prep was excellent. Mucosa of the cecum, ascending colon, transverse colon, descending colon, sigmoid colon, and rectum appeared normal. Retroflexion was performed in the rectum and no lesions were seen. The patient tolerated the procedure well. IMPRESSION: Normal-appearing colon from rectum to cecum with no evidence of colorectal neoplasia. RECOMMENDATIONS: Findings of this examination were discussed with the patient as well as her family. She was advised to have a screening colonoscopy in 10 years..
[2021-11-23 12:01] VITALS: BP 97/58; PULSE 58; RESP 16
== END 2021-11-23 12:16 | disposition home or self-care (01) ==
LOC: ORWHC2ENDO 09:27
PROVIDERS: ATTEND Internal Medicine Gastroenterology
DX: Z12.11 Encounter for screening for malignant neoplasm of colon (principal); I10 Essential (primary) hypertension; G47.33 Obstructive sleep apnea (adult) (pediatric); M54.9 Dorsalgia, unspecified; Z79.899 Other long term (current) drug therapy; Z88.1 Allergy status to other antibiotic agents; Z88.0 Allergy status to penicillin; Z90.49 Acquired absence of other specified parts of digestive tract; Z98.890 Other specified postprocedural states
CPT/HCPCS: J2704; G0121; 45378

== ENCOUNTER → 2022-02-25 | Outpatient (CLI) | payer BC, OTHER ==
--- NOTE | 2022-02-25 16:43 | US ---
EXAMINATION TYPE: US thyroid st tissue head/neck DATE OF EXAM: 02/25/2022 COMPARISON: 08/19/2021 CLINICAL HISTORY: E04.2 Goiter. GLAND SIZE: Right Lobe: 5.8 x 2.4 x 5.6 cm Overall Parenchyma: heterogenous Left Lobe: 5.6 x 2.6 x 2.2 cm Overall Parenchyma: heterogeneous Isthmus Thickness: 0.78 cm NODULES RIGHT: # of nodules measured on right: 3 1. 0.9 X 0.5 x 0.6 cm, upper lateral, mixed cystic and solid, hypoechoic nodule, which is taller th an wide, with smooth margins, without echogenic foci. Prior size: 0.9 x 0.6 x 0.5 cm 2. 0.7 X 0.5 x 0.6 cm, mid mid, mixed cystic and solid, hypoechoic nodule, which is taller than wid e, with smooth margins, with echogenic foci. Prior size: 0.7 x 0.5 x 0.7 cm 3. 0.9 X 0.6 x 0.8 cm, lower mid, mixed, hypoechoic nodule, which is taller than wide, with smooth margins, without echogenic foci. Prior size: 0.7 x 0.7 x 0.8 cm LEFT: # of nodules measured on left: 3 1. 2.0 X 1.8 x 1.9 cm, lower mid, mixed cystic and solid, hypoechoic nodule, which is taller than w georgette, with smooth margins, with echogenic foci. Prior size: 2.3 x 1.5 x 2.0 cm 2. 0.9 X 0.7 x 0.9 cm, mid medial, mixed cystic and solid, hypoechoic nodule, which is taller than wide, with smooth margins, with echogenic foci. Prior size: 1.0 x 0.5 x 0.8 cm 3. 0.9 X 0.5 x 1.0 cm, mid medial, mixed , hypoechoic nodule, which is taller than wide, with noa h margins, without echogenic foci. Prior size: not measured ISTHMUS: # of nodules measured in the isthmus: 1 1. 0.9 X 0.7 x 0.8 cm cystic or almost completely cystic, anechoic nodule, which is taller than wid e, with smooth margins, with echogenic foci. Prior size: 0.9 x 0.7 x 0.7 cm Bilateral neck scanned, no evidence of lymphadenopathy. IMPRESSION: Stable thyroid heterogeneity and nodularity.
[2022-02-26 00:05] LABS: T4, Free (Free Thyroxine) 0.95 ng/dL (0.800-1.800)
== END | disposition home or self-care (01) ==
LOC: RADUSWWP 15:25
PROVIDERS: ATTEND Internal Medicine Endocrinology, Diabetes & Metabolism
DX: E04.2 Nontoxic multinodular goiter (principal)
CPT/HCPCS: 76536; 84439; 84443

== ENCOUNTER → 2022-06-02 | Outpatient (CLI) | payer BC, OTHER ==
--- NOTE | 2022-06-03 08:21 | MM ---
Reason for Exam: Screening (asymptomatic). Last screening mammogram was performed 12 month(s) ago. Patient History: Menarche at age 13. Patient has no children. Postmenopausal. Hormonal Contraceptives for 2 years from age 46 until age 48. 12/31/2008, Benign Core Biopsy on the right side. Maternal grandmother had breast cancer. Paternal aunt had breast cancer. Risk Values: Sandy 5 year model risk: 1.8%. NCI Lifetime model risk: 8.2%. Prior Study Comparison: 05/27/2015 Bilateral Screening Mammogram, [facility]. 07/07/2016 Bilateral Diagnostic Mammogram, [facility]. 09/26/2018 Bilateral Screening Mammogram, [facility]. 04/17/2020 Bilateral Screening Mammogram, [facility]. 04/22/2020 Right Diagnostic Mammogram, [facility]. 06/01/2021 Bilateral Screening Mammogram, [facility]. Tissue Density: The breast tissue is heterogeneously dense. This may lower the sensitivity of mammography. Findings: Analyzed By CAD. There is no suspicious group of microcalcifications or new suspicious mass in either breast. Biopsy clip within the right breast. Chronic nodularity within the right breast. Benign-appearing round calcifications within both breasts. No significant change from prior exams. Overall Assessment: Benign, BI-RAD 2 Management: Screening Mammogram of both breasts in 1 year. A clinical breast exam by your physician is recommended on an annual basis and results should be correlated with mammographic findings. Electronically signed and approved by: Toribio Henderson D.O.
== END | disposition home or self-care (01) ==
LOC: RADMAMWWP 09:41
PROVIDERS: ATTEND Family Medicine
DX: Z12.31 Encounter for screening mammogram for malignant neoplasm of breast (principal); Z78.0 Asymptomatic menopausal state; Z80.3 Family history of malignant neoplasm of breast
CPT/HCPCS: 77063; 77067

== ENCOUNTER → 2022-12-07 | Outpatient (CLI) | payer BC ==
--- NOTE | 2022-12-07 12:09 | US ---
EXAMINATION TYPE: US thyroid st tissue head/neck DATE OF EXAM: 12/07/2022 COMPARISON: NONE CLINICAL INDICATION: Female, 62 years old with history of E0402 NONTOXIC MULTI GOITER; reassess left nodule GLAND SIZE: Right Lobe: 5.9 x 2.5 x 2.4 cm Overall Parenchyma: heterogenous Left Lobe: 5.8 x 2.3 x 3.1 cm Overall Parenchyma: heterogenous Isthmus Thickness: 0.6 cm NODULES RIGHT: # of nodules measured on right: multiple nodules, maesured largest 1. 0.8 x 0.5 x 0.8 cm, mid , cystic or almost completely cystic, anechoic nodule, which is wider lauren n tall, with smooth margins, with echogenic foci. Prior size: 0.9 X 0.6 x 0.8 cm LEFT: # of nodules measured on left: multiple nodules, maesured largest 1. 2.8 x 2.3 x 2.4 cm, lower , mixed cystic and solid, hypoechoic nodule, which is wider than tall , with smooth margins, without echogenic foci. Prior size: 2.7 X 2.3 x 2.1 cm ISTHMUS: # of nodules measured in the isthmus: 0 Bilateral neck scanned, no evidence of lymphadenopathy. IMPRESSION: Stable nonspecific thyroid nodularity.
[2022-12-08 01:02] LABS: T4, Free (Free Thyroxine) 1.05 ng/dL (0.80-1.80)
== END | disposition home or self-care (01) ==
LOC: RADUSWWP 11:27
PROVIDERS: ATTEND Internal Medicine Endocrinology, Diabetes & Metabolism
DX: E04.2 Nontoxic multinodular goiter (principal)
CPT/HCPCS: 76536; 84439; 84443

== ENCOUNTER → 2023-06-06 | Outpatient (CLI) | payer BC ==
--- NOTE | 2023-06-06 16:07 | MM ---
Reason for Exam: Screening (asymptomatic). Last mammogram was performed 1 year(s) and 1 month(s) ago. Patient History: Menarche at age 13. Patient has no children. Postmenopausal. Hormonal Contraceptives for 2 years from age 46 until age 48. 12/31/2008, Benign Core Biopsy on the right side. Maternal grandmother (great) had breast cancer. Paternal aunt had breast cancer. Risk Values: Sandy 5 year model risk: 1.9%. NCI Lifetime model risk: 8.0%. Prior Study Comparison: 09/26/2018 Bilateral Screening Mammogram, [facility]. 04/17/2020 Bilateral Screening Mammogram, [facility]. 04/22/2020 Right Diagnostic Mammogram, [facility]. 06/01/2021 Bilateral Screening Mammogram, [facility]. 06/02/2022 Bilateral MG 3D screening mammo w/cad, [facility]. Tissue Density: The breast tissue is heterogeneously dense. This may lower the sensitivity of mammography. Findings: Analyzed By CAD. Pattern appears symmetrical. Scattered benign-appearing calcification is present. No suspicious groups of microcalcifications, spiculated or lobular masses, architectural distortion or other secondary signs of malignancy are mammographically apparent. Overall Assessment: Benign, BI-RAD 2 Management: Screening Mammogram of both breasts in 1 year. A negative mammogram report should not preclude additional follow up of suspicious palpable abnormalities. Patient should continue monthly self breast exam. A clinical breast exam by your physician is recommended on an annual basis and results should be correlated with mammographic findings. Electronically signed and approved by: Pradeep Paulson D.O. Radiologis
== END | disposition home or self-care (01) ==
LOC: RADMAMWWP 07:06
PROVIDERS: ATTEND Family Medicine
DX: Z12.31 Encounter for screening mammogram for malignant neoplasm of breast (principal); Z78.0 Asymptomatic menopausal state; Z80.3 Family history of malignant neoplasm of breast
CPT/HCPCS: 77063; 77067

== ENCOUNTER → 2023-06-06 | Outpatient (CLI) | payer BC ==
[2023-06-06 11:18] LABS: T4, Free (Free Thyroxine) 0.97 ng/dL (0.80-1.80)
== END | disposition home or self-care (01) ==
LOC: LABWHC1 07:22
PROVIDERS: ATTEND Internal Medicine Endocrinology, Diabetes & Metabolism
DX: E04.2 Nontoxic multinodular goiter (principal)
CPT/HCPCS: 36415; 84439; 84443

== ENCOUNTER → 2023-06-08 | Outpatient (CLI) | payer BC ==
--- NOTE | 2023-06-08 23:36 | US ---
EXAMINATION TYPE: US thyroid st tissue head/neck DATE OF EXAM: 06/08/2023 COMPARISON: US CLINICAL INDICATION: Female, 62 years old with history of E04.2 NONTOXIC MULTINODULAR GOITER; F/U nod ules GLAND SIZE: Right Lobe: 5.8 x 2.6 x 2.8 cm Overall Parenchyma: heterogenous Left Lobe: 6.2 x 2.7 x 2.7 cm Overall Parenchyma: heterogenous Isthmus Thickness: 0.5 cm NODULES Multiple nodules bilaterally- largest on each lobe measured RIGHT: # of nodules measured on right: 1 1. 0.9 X 0.6 x 0.9 cm, lower, solid or almost completely solid, hypoechoic nodule, which is wider t oliveira tall, with smooth margins, without echogenic foci. TR 4 Prior size: Not measured on prior LEFT: # of nodules measured on left: 1 1. 2.6 X 2.1 x 2.6 cm, lower, cystic or almost completely cystic, hypoechoic nodule, which is wider than tall, with smooth margins, without echogenic foci. Prior size: 2.8 x 2.3 x 2.4 cm ISTHMUS: # of nodules measured in the isthmus: 0 Bilateral neck scanned, no evidence of lymphadenopathy. Multiple nodules bilaterally, largest on each side measured- measurements above. IMPRESSION: Moderately suspicious subcentimeter nodule right lobe thyroid. Consider follow-up exam 2017 ACR TI-RADS LEVEL: TR-RADS 4 - Moderately Suspicious: Follow if > 1 cm, FNA if > 1.5 cm *Highest TI-RADS level nodule reported
== END | disposition home or self-care (01) ==
LOC: RADUSWWP 09:30
PROVIDERS: ATTEND Internal Medicine Endocrinology, Diabetes & Metabolism
DX: E04.2 Nontoxic multinodular goiter (principal)
CPT/HCPCS: 76536

== ENCOUNTER → 2023-06-13 | Outpatient (CLI) | payer BC ==
--- NOTE | 2023-06-13 17:18 | P.PN ---
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 Her last evaluation with me was on 11/02/2021. The patient has a APAP unit and her machine is becoming noisy and the patient is very much interested in updating her CPAP unit. Her current pressures of 5/16 cm of water. Since her last evaluation, the patient has lost approximately 10 pounds. I checked the compliancy and the patient is absolutely compliant and the patient is achieving more than 4 hours of CPAP use 100% of the time. She is averaging around 7.1 hours of CPAP use per night. P95th percentile pressure as recorded by the machine is at 14.7. Her AHI down to 2.8 and she has minimal amount of leak and she is using the Airfit F and fullface mask. She is using medium size mask. She is doing well. No major hypersomnia or sleepiness during the day. Her blood pressures under adequate control. No heartburn. No abdominal distention. Current [place] score is down to 4. No other new complaints otherwise for now. No angina. No palpitation. Sleep hygiene measures are good. Does not utilize excessive amount of alcohol or caffeinated beverages. Her medications remain a combination of lisinopril 20 mg and hydrochlorothiazide 25 mg for blood pressure control. BP is 116/76 with a pulse of 71 and a respiration of 16 and the temperature is at 97.5 and the patient's weight is down to 215 pounds. The patient appeared well nourished and normally developed. Vital signs as documented. Head exam is unremarkable. No scleral icterus or corneal arcus noted. Neck is without jugular venous distension, thyromegaly, or carotid bruits. Carotid upstrokes are brisk bilaterally. Lungs are clear to auscultation and percussion. Cardiac exam reveals the PMI to be normally sized and situated. Rhythm is regular. First and second heart sounds normal. No murmurs, rubs or gallops. Abdominal exam reveals normal bowel sounds, no masses, no organomegaly and no aortic enlargement. Extremities are nonedematous and both femoral and pedal pulses are normal.Examination of the skin revealed no evidence of significant rashes, suspicious appearing nevi or other concerning lesions.Neurologically, the patient is awake and alert and the patient does not have any focal neurological deficit. Cranial nerves are essentially intact. Assessment Severe symptomatic NAIMA with an AHI of 30. The patient is currently on APAP machine pressures of 5/16 cm of water. Treatment is extremely successful. Machine is old and may need to be updated. Obesity, weight is currently down to 215 pounds Chronic hypersomnia, improved while on CPAP therapy Hypertension Plan The patient will be given a new CPAP machine. I recommend a ResMed 11 CPAP unit with the same settings of 5/16 cm of water, automatic mode. The patient will be also given an Airfit F20 medium-sized fullface mask as an alternative for her current mask. The patient will see him back in 30-90 basis of clinical response and compliancy. We'll make further adjustments based on her clinical response and a new CPAP unit. Overall treatment is successful for now.
== END ==
LOC: 3 N SLEEP 15:18
PROVIDERS: ATTEND Internal Medicine Critical Care Medicine
DX: G47.33 Obstructive sleep apnea (adult) (pediatric) (principal); E66.9 Obesity, unspecified; G47.10 Hypersomnia, unspecified; I10 Essential (primary) hypertension; Z99.89 Dependence on other enabling machines and devices; Z88.0 Allergy status to penicillin; Z88.1 Allergy status to other antibiotic agents
CPT/HCPCS: 99212

== ENCOUNTER → 2023-12-18 | Outpatient (CLI) | payer BC ==
--- NOTE | 2023-12-18 12:24 | US ---
EXAMINATION TYPE: US thyroid st tissue head/neck DATE OF EXAM: 12/18/2023 COMPARISON: 06/08/2023 CLINICAL INDICATION: Female, 63 years old with history of E04.2 NONTOXIC MULTINODULAR GOITER; Goiter GLAND SIZE: Right Lobe: 5.7 x 2.8 x 2.7 cm Overall Parenchyma: heterogeneous Left Lobe: 5.6 x 3.1 x 2.5 cm Overall Parenchyma: heterogeneous Isthmus Thickness: 0.7 cm NODULES *Multiple nodules bilaterally, largest on each lobe measured RIGHT: # of nodules measured on right: 1 1. 1.0 X 0.7 x 1.0 cm, lower , mixed cystic and solid, hypoechoic nodule, which is wider than tall, with smooth margins, without echogenic foci. Prior size: 0.9 x 0.6 x 0.9 cm LEFT: # of nodules measured on left: 1 1. 2.3 X 1.8 x 2.3 cm, lower , mixed cystic and solid, hypoechoic nodule, which is wider than tall, with smooth margins, without echogenic foci. Prior size: 2.6 x 2.1 x 2.6 cm ISTHMUS: # of nodules measured in the isthmus: 0 Bilateral neck scanned, normal appearing lymph nodes bilaterally IMPRESSION: Mildly Suspicious: FNA if ? 2.5 cm; Follow if ? 1.5 cm at 1, 3, and 5 y 2017 ACR TI-RADS LEVEL: TR3 *Highest TI-RADS level nodule reported
[2023-12-18 15:39] LABS: T4, Free (Free Thyroxine) 1.19 ng/dL (0.80-1.80)
== END | disposition home or self-care (01) ==
LOC: RADUSWWP 10:06
PROVIDERS: ATTEND Internal Medicine Endocrinology, Diabetes & Metabolism
DX: E04.2 Nontoxic multinodular goiter (principal)
CPT/HCPCS: 76536; 84439; 84443

== ENCOUNTER → 2024-06-14 | Outpatient (CLI) | payer BC ==
--- NOTE | 2024-06-14 09:21 | MM ---
Reason for Exam: Screening (asymptomatic). Last screening mammogram was performed 12 month(s) ago. Patient History: Menarche at age 13. Patient has no children. Postmenopausal. Hormonal Contraceptives for 2 years from age 46 until age 48. 12/31/2008, Benign Core Biopsy on the right side. Maternal grandmother (great) had breast cancer. Paternal aunt had breast cancer. Risk Values: Sandy 5 year model risk: 1.9%. NCI Lifetime model risk: 7.7%. Prior Study Comparison: 06/01/2021 Bilateral Screening Mammogram, [facility]. 06/02/2022 Bilateral MG 3D screening mammo w/cad, [facility]. 06/06/2023 Bilateral MG 3D screening mammo w/cad, [facility]. Tissue Density: There are scattered areas of fibroglandular density. Findings: Analyzed By CAD. Right breast: There is no suspicious group of microcalcifications or new suspicious mass. Left breast: There is no suspicious group of microcalcifications or new suspicious mass. Overall Assessment: Negative, BI-RAD 1 Management: Screening Mammogram of both breasts in [address] [facility] will attempt to contact patient to return for supplemental views and ultrasound if indicated. Patient should continue monthly self-breast exams. A clinical breast exam by your physician is recommended on an annual basis. This exam should not preclude additional follow-up of suspicious palpable abnormalities. Note on Sandy scores and lifetime risk: 1. A Sandy score greater than 3% is considered moderate risk. If this is the case, consider specialist referral to assess eligibility for a risk reducing agent. 2. If overall lifetime risk for the development of breast cancer is 20% or higher, the patient may qualify for future screening with alternating mammogram and breast MRI. [facility], , 06/14/2024 9:15 AM. Electronically signed and approved by: Quincy Lozano DO
== END | disposition home or self-care (01) ==
LOC: RADMAMWWP 08:12
PROVIDERS: ATTEND Family Medicine
DX: Z12.31 Encounter for screening mammogram for malignant neoplasm of breast (principal); R92.323 Mammographic fibroglandular density, bilateral breasts; Z78.0 Asymptomatic menopausal state; Z80.3 Family history of malignant neoplasm of breast
CPT/HCPCS: 77063; 77067

== ENCOUNTER → 2024-06-27 | Outpatient (CLI) | payer BC ==
[2024-06-27 16:13] LABS: T4, Free (Free Thyroxine) 1.11 ng/dL (0.80-1.80)
== END | disposition home or self-care (01) ==
LOC: LABWHC1 11:51
PROVIDERS: ATTEND Internal Medicine Endocrinology, Diabetes & Metabolism
DX: E04.2 Nontoxic multinodular goiter (principal)
CPT/HCPCS: 36415; 84439; 84443

== ENCOUNTER → 2024-06-27 | Outpatient (CLI) | payer BC ==
--- NOTE | 2024-06-27 12:29 | US ---
EXAMINATION TYPE: US thyroid st tissue head/neck DATE OF EXAM: 06/27/2024 COMPARISON: 12/18/23 CLINICAL INDICATION: Female, 63 years old with history of E04.2 Nontoxic multinodular goiter; nodules TECHNIQUE: Grayscale and color Doppler imaging of the thyroid gland. FINDINGS: GLAND SIZE: Right Lobe: 6.0 x 2.6 x 2.6 cm Overall Parenchyma: heterogeneous Left Lobe: 5.4 x 2.5 x 2.5 cm Overall Parenchyma: heterogeneous Isthmus Thickness: 0.5 cm NODULES RIGHT: # of nodules measured on right: 2 1. 1.0 X 1.1 x 0.7 cm, lower mid, Prior size: 1.0 x 1.0 x 0.7 cm TIRADS Score: 3 TIRADS Category 3: Composition: Mixed cystic and solid (1 point). Echogenicity: Hypoechoic (2 points). Shape: Wider than tall (0 points). Margin: Smooth (0 points). Echogenic foci: None or large comet-tail artifacts (0 points) Recommendation: If >2.5cm: FNA; If >1.5cm: Follow up at 1,3,5 years 2. 1.1 X 0.8 x 0.6 cm, upper mid, TIRADS Score: 3 TIRADS Category 3: Composition: Mixed cystic and solid (1 point). Echogenicity: Hypoechoic (2 points). Shape: Wider than tall (0 points). Margin: Smooth (0 points). Echogenic foci: None or large comet-tail artifacts (0 points) Recommendation: If >2.5cm: FNA; If >1.5cm: Follow up at 1,3,5 years LEFT: # of nodules measured on left: 1 1. 2.1 X 2.0 x 1.9 cm, lower mid, Prior size: 2.3 x 2.3 x 1.8 cm TIRADS Score: 4 TIRADS Category 4: Composition: Solid or almost completely solid (2 points). Echogenicity: Hypoechoic (2 points). Shape: Wider than tall (0 points). Margin: Smooth (0 points). Echogenic foci: None or large comet-tail artifacts (0 points) Recommendation: If >1.5cm: FNA; If >1cm: Follow up at 1,2, 3,5 years ISTHMUS: # of nodules measured in the isthmus: 1 Nodule measuring 9 mm in the right aspect of the isthmus. TIRADS Score: 4 TIRADS Category 4: Composition: Solid or almost completely solid (2 points). Echogenicity: Hypoechoic (2 points). Shape: Wider than tall (0 points). Margin: Smooth (0 points). Echogenic foci: None or large comet-tail artifacts (0 points) Recommendation: If >1.5cm: FNA; If >1cm: Follow up at 1,2, 3,5 years Bilateral neck scanned, lymph node measured on right side of neck Multiple nodules seen bilaterally IMPRESSION: Left thyroid nodule measuring up to 2.1 cm and meets criteria for fine-needle aspiration of not alsnowa dy performed. [facility], , 06/27/2024 12:27 PM
== END | disposition home or self-care (01) ==
LOC: RADUSWWP 11:11
PROVIDERS: ATTEND Internal Medicine Endocrinology, Diabetes & Metabolism
DX: E04.2 Nontoxic multinodular goiter (principal)
CPT/HCPCS: 76536